=== PATIENT | male | born 1945 | race Caucasian/White ===

== ENCOUNTER 2021-11-23 19:46 | Emergency (ER) | payer MEDICARE, BC, OTHER | END 2021-11-23 20:17 | disposition left against medical advice (07) | LOC: CSHERS 19:46 | DX: Z53.21 Procedure and treatment not carried out due to patient leaving prior to being seen by health care provider (principal) ==

== ENCOUNTER → 2024-02-13 | Day surgery (SDC) | payer MEDICARE, OTHER ==
[~2024-02-13] MED LIST: Atropine Sulfate 1 mg/1 ml Vial ONE; CEFAZOLIN 1 GM VIAL ONE; Gentamicin 80 MG/2 ML VIAL ONE; Iopamidol 300 61% 100 ML VIAL FS ONE; Lidocaine 1% w/Epinephrine 1:200K 30 ML VIAL ONE; Midazolam HCl 2 mg/2 ml Vial ONE; Vancomycin 1 GM VIAL ONE; fentaNYL 50 mcg/mL 1 mL Vial ONE
[2024-02-13 07:14] LABS: #Basophils 0.07 10x3/uL (0.0-0.2); #Eosinphils 0.57 10x3/uL (0.0-0.5); #Monocytes 0.87 10x3/uL (0.0-1.1); #Neutrophils 4.55 10x3/uL (1.5-8.4); %Basophils 0.8 % (0.0-2.0); %Eosinophils 6.6 % (0.0-6.0); %Lymphocytes 29.7 % (18.0-47.0); %Monocytes 10.1 % (0.0-10.0); %Neutrophils 52.6 % (40.0-75.0); Hematocrit 35.5 % (38.8-50.0); Hemoglobin 11.6 g/dL (13.5-17.5); Mean Corpuscular HGB CONC 32.7 g/dL (32.0-36.0); Mean Corpuscular Hemoglobin 32.5 pg (27.0-33.0); Mean Corpuscular Volume 99.4 fL (81.2-95.1); Mean Platelet Volume 9.9 fL (7.4-10.4); Platelet Count 236 10x3/uL (150-450); RBC Distribution Width 12.9 % (11.5-14.5); Red Blood Cell (RBC) Count 3.57 10x6/uL (4.32-5.72); White Blood Cell (WBC) Count 8.7 10x3/uL (3.5-10.5)
[2024-02-13 07:25] LABS: INR-International Normal Ratio 1.1; Prothrombin Time 11.6 sec (9.5-12.1)
[2024-02-13 07:28] LABS: Anion Gap 17 mmol/L (10-20); BUN (Urea Nitrogen) 38 mg/dL (8.4-25.7); Calc. Creatinine Clearance 0 mL/min (70-130); Calcium 9.8 mg/dL (7.8-10.44); Carbon Dioxide 21 mmol/L (23-31); Chloride 104 mmol/L (98-107); Estimated GFR 32; Glucose 114 mg/dL (83-110); Sodium 137 mmol/L (136-145)
== END ==
LOC: CSHSDC 06:28
PROVIDERS: ATTEND Internal Medicine
PROC: 0JH608Z Insertion of Defibrillator Generator into Chest Subcutaneous Tissue and Fascia, Open Approach (ICD-10-PCS; principal; 2024-02-13)
PROC: 02H63KZ Insertion of Defibrillator Lead into Right Atrium, Percutaneous Approach (ICD-10-PCS; 2024-02-13)
PROC: 02HK3KZ Insertion of Defibrillator Lead into Right Ventricle, Percutaneous Approach (ICD-10-PCS; 2024-02-13)
DX: I25.5 Ischemic cardiomyopathy (principal); I11.0 Hypertensive heart disease with heart failure; I50.22 Chronic systolic (congestive) heart failure; I25.10 Atherosclerotic heart disease of native coronary artery without angina pectoris; E78.5 Hyperlipidemia, unspecified; Z79.899 Other long term (current) drug therapy
CPT/HCPCS: 33249; 71045; 80048; 85025; 85610; 93005; C1763; C1769; C1777; C1898; J0690; J1580; J2250; J3010; J3370; 93010; 99152; 99153; J0461; Q9967

== ENCOUNTER 2024-03-12 12:55 | Outpatient (CLI) | payer MEDICARE, OTHER | END 2024-03-12 12:56 | disposition home or self-care (01) | LOC: CSHULT 12:55 | PROVIDERS: ATTEND Internal Medicine | DX: N17.9 Acute kidney failure, unspecified (principal); N28.1 Cyst of kidney, acquired | CPT/HCPCS: 76770 ==

== ENCOUNTER 2024-07-17 13:56 | Emergency (ER) | payer MEDICARE ==
[2024-07-17] MEDS ORDERED: Lidocaine 1% PF 5 ML VIAL ONE (14:28)
[2024-07-17 14:51] LABS: #Basophils 0.06 10x3/uL (0.0-0.2); #Eosinophils 0.03 10x3/uL (0.0-0.5); #Monocytes 1.15 10x3/uL (0.0-1.1); #Neutrophils 6.85 10x3/uL (1.5-8.4); %Basophils 0.6 % (0.0-2.0); %Eosinophils 0.3 % (0.0-6.0); %Lymphocytes 23.6 % (18.0-47.0); %Monocytes 10.8 % (0.0-10.0); %Neutrophils 64.3 % (40.0-75.0); Hematocrit 35.7 % (38.8-50.0); Hemoglobin 12.2 g/dL (13.5-17.5); Mean Corpuscular HGB CONC 34.2 g/dL (32.0-36.0); Mean Corpuscular Hemoglobin 33.2 pg (27.0-33.0); Mean Platelet Volume 10.1 fL (7.4-10.4); Platelet Count 204 10x3/uL (150-450); RBC Distribution Width 12.4 % (11.5-14.5); Red Blood Cell (RBC) Count 3.68 10x6/uL (4.32-5.72); White Blood Cell (WBC) Count 10.64 10x3/uL (3.5-10.5)
[2024-07-17 15:10] LABS: ALT (SGPT) 15 U/L (Less than 45); AST (SGOT) 28 U/L (11-34); Alkaline Phosphatase 74 U/L (40-110); Anion Gap 16 mmol/L (10-20); BUN (Urea Nitrogen) 27 mg/dL (8.4-25.7); Calcium 9.5 mg/dL (7.8-10.44); Carbon Dioxide 19 mmol/L (23-31); Chloride 105 mmol/L (98-107); Glucose 93 mg/dL (83-110); Potassium 4.3 mmol/L (3.5-5.1); Protein, Total 7.4 g/dL (5.8-8.1); Sodium 136 mmol/L (136-145)
[2024-07-17 15:33] LABS: Albumin 3.8 g/dL (3.1-4.5); Bilirubin, Total 0.5 mg/dL (0.3-1.2); Calc. Creatinine Clearance 0 mL/min (70-130); Estimated GFR 29
== END 2024-07-17 16:40 | disposition home or self-care (01) ==
LOC: CSHERS 13:56
DX: S01.81XA Laceration without foreign body of other part of head, initial encounter (principal); R55 Syncope and collapse; I10 Essential (primary) hypertension; W01.198A Fall on same level from slipping, tripping and stumbling with subsequent striking against other object, initial encounter
CPT/HCPCS: 12053; 36415; 70450; 70486; 80053; 85025; 93005

== ENCOUNTER 2024-07-21 16:21 | Emergency (ER) | payer MEDICARE ==
[2024-07-21 18:00] LABS: INR-International Normal Ratio 1.1; PTT 31.8 sec (22.0-33.0); Prothrombin Time 12.2 sec (9.5-12.1)
[2024-07-21 18:14] LABS: Hematocrit 33.6 % (38.8-50.0); Hemoglobin 11.4 g/dL (13.5-17.5); Mean Corpuscular HGB CONC 33.9 g/dL (32.0-36.0); Mean Corpuscular Hemoglobin 32.1 pg (27.0-33.0); Mean Corpuscular Volume 94.6 fL (81.2-95.1); Mean Platelet Volume 10.4 fL (7.4-10.4); Platelet Count 232 10x3/uL (150-450); RBC Distribution Width 12.7 % (11.5-14.5); Red Blood Cell (RBC) Count 3.55 10x6/uL (4.32-5.72); White Blood Cell (WBC) Count 10.35 10x3/uL (3.5-10.5)
[2024-07-21] MEDS ORDERED: Ondansetron PF 4 MG/2 ML Vial ONE ×3 (18:14→23:47)
[2024-07-21 18:23] LABS: ALT (SGPT) 11 U/L (Less than 45); AST (SGOT) 18 U/L (11-34); Albumin 2.4 g/dL (3.1-4.5); Alkaline Phosphatase 90 U/L (40-110); Anion Gap 15 mmol/L (10-20); BUN (Urea Nitrogen) 66 mg/dL (8.4-25.7); Band 11 % (5-11); Bilirubin, Total 0.7 mg/dL (0.3-1.2); Calc. Creatinine Clearance 0 mL/min (70-130); Calcium 8.2 mg/dL (7.8-10.44); Carbon Dioxide 17 mmol/L (23-31); Chloride 105 mmol/L (98-107); Dohle Bodies SLIGHT; Estimated GFR 14; Globulin 3.3 g/dL (2.4-3.5); Glucose 122 mg/dL (83-110); Lipase 48 U/L (8-78); Lymphocytes 10 % (21-51); MDiff Complete? YES; Magnesium 1.6 mg/dL (1.6-2.6); Metamyelocyte 2 % (0-0); Monocytes 1 % (0-10); Neutrophil 75 % (42-75); Platelet Adequacy Comment Appears Adequate; Potassium 4.7 mmol/L (3.5-5.1); Protein, Total 5.7 g/dL (5.8-8.1); RBC Morphology Within Normal Limits; Reactive Lymphocytes 1 % (0-10); Sodium 132 mmol/L (136-145); Toxic Granulation SLIGHT
[2024-07-21 18:25] LABS: Troponin I 0.374 ng/mL (< 0.028)
[2024-07-21] MEDS ORDERED: Piperacillin/Tazobactam 3.375 GM VIAL ONE (20:00)
[2024-07-21] MEDS ORDERED: NOREPINEPHRINE 8 MG/250 ML-D5W 250 ML ONE (21:53)
== END 2024-07-22 01:09 | disposition short-term general hospital (02) ==
LOC: CSHERS 16:21
DX: A41.9 Sepsis, unspecified organism (principal); R65.21 Severe sepsis with septic shock; N17.9 Acute kidney failure, unspecified; K57.32 Diverticulitis of large intestine without perforation or abscess without bleeding; I10 Essential (primary) hypertension; E78.5 Hyperlipidemia, unspecified; K21.9 Gastro-esophageal reflux disease without esophagitis; Z79.899 Other long term (current) drug therapy
CPT/HCPCS: 36556; 71045; 71250; 73030; 74177; 80053; 83605; 83690; 83735; 83880; 84145; 84484; 85025; 85610; 85730; 86850; 86900; 86901; 87040; 87149 ×2; 93005; 96361; 96365; 96375; 96376; 99285; J2405; J2543; 36415; 87077

== ENCOUNTER 2025-04-09 09:45 | Outpatient (CLI) | payer MEDICARE, OTHER | END 2025-04-09 09:46 | disposition home or self-care (01) | LOC: CSHRAD 09:45 | PROVIDERS: ATTEND Surgery | DX: Z93.3 Colostomy status (principal) | CPT/HCPCS: 74280 ==

== ENCOUNTER 2025-04-09 11:45 | Inpatient (IN) | payer MEDICARE, OTHER ==
[2025-04-09 11:42] VITALS: BMI 25.1
[2025-04-19] MEDS ORDERED: Etomidate 40 MG (20 mL) VIAL ONE (08:25)
[2025-04-19] MEDS ORDERED: Rocuronium Bromide 10 MG/ML (10ML VIAL) ONE (08:25)
[2025-04-19] MEDS ORDERED: Bupivacaine/Epinephrine 0.25% 30 ML VIAL ONE ×2 (08:31→08:52)
[2025-04-19] MEDS ORDERED: Ondansetron PF 4 MG/2 ML Vial ONE (12:54)
[2025-04-19] MEDS ORDERED: SUGAMMADEX SODIUM 200 MG/2 ML VIAL ONE (13:06)
[2025-04-19] MEDS ORDERED: Ondansetron PF 4 MG/2 ML Vial IVP PRN (13:49)
[2025-04-19] MEDS ORDERED: hydrALAZINE 20 MG/ML VIAL SLOW IVP PRN (13:49)
[2025-04-19] MEDS ORDERED: Albuterol 2.5 MG (3 mL) NEB NEB PRN (14:15)
[2025-04-19] MEDS ORDERED: Glucagon 1 MG/ML KIT IM PRN (14:30)
[2025-04-19] MEDS ORDERED: Dextrose 50% Abboject 50 ML SYRINGE SLOW IVP PRN (14:30)
[2025-04-19] MEDS: D5 1/2 NS w/20 mEq KCL 1,000 ML IV SCH (17:07)
[2025-04-19] MEDS: Ketorolac Tromethamine 30 MG (1 mL) VIAL IVP SCH (17:07)
[2025-04-19] MEDS: hydrALAZINE 10 MG TAB PO SCH (17:51)
[2025-04-19] MEDS: Artificial Tear Ophth Sol 15 ML BOT EA EYE SCH (18:30)
[2025-04-19] MEDS: Famotidine/PF 20 mg/2ml Vial SLOW IVP SCH (21:09)
[2025-04-19] MEDS: cefOXitin Sodium 1 GM in Sodium Chloride 0.9% 100 ML IVPB SCH (21:11)
[2025-04-19] MEDS: Famotidine 20 MG TAB PO SCH (21:19)
[2025-04-19] MEDS: Carvedilol 25 MG TAB PO SCH (23:21)
[2025-04-20 05:35] LABS: #Basophils 0.05 10x3/uL (0.0-0.2); #Eosinophils 0.09 10x3/uL (0.0-0.5); #Monocytes 0.70 10x3/uL (0.0-1.1); #Neutrophils 8.95 10x3/uL (1.5-8.4); %Basophils 0.5 % (0.0-2.0); %Eosinophils 0.8 % (0.0-6.0); %Lymphocytes 11.0 % (18.0-47.0); %Monocytes 6.3 % (0.0-10.0); %Neutrophils 80.9 % (40.0-75.0); Hematocrit 38.0 % (38.8-50.0); Hemoglobin 12.4 g/dL (13.5-17.5); Mean Corpuscular Hemoglobin 32.5 pg (27.0-33.0); Mean Corpuscular Volume 99.7 fL (81.2-95.1); Platelet Count 167 10x3/uL (150-450); Red Blood Cell (RBC) Count 3.81 10x6/uL (4.32-5.72); White Blood Cell (WBC) Count 11.06 10x3/uL (3.5-10.5)
[2025-04-20] MEDS ORDERED: Pantoprazole 40 MG DR.TAB PO SCH (07:30)
[2025-04-20] MEDS: Pantoprazole 40 MG DR.TAB PO SCH (09:01)
[2025-04-20 12:10] LABS: Anion Gap 11 mmol/L (10-20); BUN (Urea Nitrogen) 29 mg/dL (8.4-25.7); Calc. Creatinine Clearance 43 mL/min (70-130); Calcium 7.9 mg/dL (7.8-10.44); Carbon Dioxide 29 mmol/L (23-31); Chloride 104 mmol/L (98-107); Glucose 100 mg/dL (83-110); Potassium 3.7 mmol/L (3.5-5.1); Sodium 140 mmol/L (136-145)
[2025-04-20] MEDS ORDERED: HYDROcodone/Acetaminophen 7.5/325 mg Tablet PO PRN (13:50)
[2025-04-20] MEDS: Furosemide 40 MG (4 mL) VIAL SLOW IVP SCH (16:43)
[2025-04-20 18:34] LABS: Troponin I 0.031 ng/mL (< 0.028)
[2025-04-21 05:18] LABS: #Basophils 0.03 10x3/uL (0.0-0.2); #Eosinophils 0.06 10x3/uL (0.0-0.5); #Monocytes 0.89 10x3/uL (0.0-1.1); #Neutrophils 7.69 10x3/uL (1.5-8.4); %Basophils 0.3 % (0.0-2.0); %Eosinophils 0.6 % (0.0-6.0); %Lymphocytes 10.0 % (18.0-47.0); %Monocytes 9.2 % (0.0-10.0); %Neutrophils 79.4 % (40.0-75.0); Hematocrit 31.1 % (38.8-50.0); Hemoglobin 10.0 g/dL (13.5-17.5); Mean Corpuscular Hemoglobin 32.4 pg (27.0-33.0); Mean Corpuscular Volume 100.6 fL (81.2-95.1); Platelet Count 141 10x3/uL (150-450); Red Blood Cell (RBC) Count 3.09 10x6/uL (4.32-5.72); White Blood Cell (WBC) Count 9.69 10x3/uL (3.5-10.5)
[2025-04-21 05:40] LABS: Troponin I 0.031 ng/mL (< 0.028)
[2025-04-21 06:06] LABS: Anion Gap 13 mmol/L (10-20); BUN (Urea Nitrogen) 30 mg/dL (8.4-25.7); Calc. Creatinine Clearance 43 mL/min (70-130); Calcium 8.1 mg/dL (7.8-10.44); Carbon Dioxide 27 mmol/L (23-31); Chloride 103 mmol/L (98-107); Glucose 130 mg/dL (83-110); Magnesium 1.7 mg/dL (1.6-2.6); Potassium 3.9 mmol/L (3.5-5.1); Sodium 139 mmol/L (136-145)
[2025-04-21] MEDS ORDERED: Etomidate 40 MG (20 mL) VIAL ONE (08:00)
[2025-04-21] MEDS ORDERED: Rocuronium Bromide 10 MG/ML (10ML VIAL) ONE (08:00)
[2025-04-21] MEDS: D5 1/2 NS w/20 mEq KCL 1,000 ML IV SCH (08:44)
[2025-04-21] MEDS: Furosemide 40 MG (4 mL) VIAL SLOW IVP SCH ×2 (08:45→14:11)
[2025-04-21] MEDS ORDERED: Midazolam In 0.9 % NaCl/PF 100 ML IV SCH (16:00)
[2025-04-21] MEDS ORDERED: Fentanyl BOLUS 100 ML IVPB PRN (16:15)
[2025-04-21] MEDS ORDERED: Propofol BOLUS 1,000 MG/100 ML VIAL IV PRN (16:15)
[2025-04-21] MEDS ORDERED: DISCONTINUE PREVIOUS NARCOTIC PAIN MEDICATIONS AND BENZODIAZEPINES FS SCH (16:15)
[2025-04-21] MEDS ORDERED: Ventilator Sedation Protocol 1 EACH FS SCH (16:15)
[2025-04-21 16:47] LABS: ALT (SGPT) 15 U/L (Less than 45); AST (SGOT) 47 U/L (11-34); Albumin 2.6 g/dL (3.1-4.5); Alkaline Phosphatase 78 U/L (40-110); Anion Gap 18 mmol/L (10-20); BUN (Urea Nitrogen) 31 mg/dL (8.4-25.7); Bilirubin, Total 1.5 mg/dL (0.3-1.2); Calc. Creatinine Clearance 41 mL/min (70-130); Calcium 7.7 mg/dL (7.8-10.44); Carbon Dioxide 24 mmol/L (23-31); Chloride 103 mmol/L (98-107); Globulin 3.7 g/dL (2.4-3.5); Glucose 123 mg/dL (83-110); Sodium 140 mmol/L (136-145)
[2025-04-21 16:48] LABS: Actual Bicarbonate (HCO3v) 24.5 mEq/L (22-28); Analyzer IN Cardio CS ICU; Base Excess -4.1 mEq/L (-2 - +2); Calcium, Ionized (venous) 1.06 mmol/L (1.16-1.32); Chloride (VBG) 102 mmol/L (98-106); Critical Notified By: Udy, RRT; Hematocrit-VBG 37 % (42.0-52.0); Hemoglobin (Hb) 12.6 g/dL (12.6-17.4); Potassium (VBG) 4.22 mmol/L (3.70-5.30); Puncture Site Other Site; RapidComm Collect By LAB; Sodium 139 mmol/L (133-146)
[2025-04-21 16:54] LABS: Troponin I 0.029 ng/mL (< 0.028)
[2025-04-21 17:04] LABS: Potassium 5.1 mmol/L (3.5-5.1)
[2025-04-21 17:06] LABS: #Basophils Less than 0.03 10x3/uL (0.0-0.2); #Eosinophils 0.13 10x3/uL (0.0-0.5); #Monocytes 0.67 10x3/uL (0.0-1.1); #Neutrophils 9.51 10x3/uL (1.5-8.4); %Basophils 0.2 % (0.0-2.0); %Eosinophils 1.1 % (0.0-6.0); %Lymphocytes 14.5 % (18.0-47.0); %Monocytes 5.5 % (0.0-10.0); %Neutrophils 77.9 % (40.0-75.0); Hematocrit 35.4 % (38.8-50.0); Hemoglobin 11.3 g/dL (13.5-17.5); Mean Corpuscular Hemoglobin 33.2 pg (27.0-33.0); Mean Corpuscular Volume 104.1 fL (81.2-95.1); Platelet Count 145 10x3/uL (150-450); Red Blood Cell (RBC) Count 3.40 10x6/uL (4.32-5.72); White Blood Cell (WBC) Count 12.20 10x3/uL (3.5-10.5)
[2025-04-21 17:16] LABS: Actual Bicarbonate (HCO3a) 24.4 mEq/L (22-28); Analyzer IN Cardio CS ICU; Base Excess (BEa) 3.1 mEq/L (-2.0 to +3.0); CO2 Tension 27.4 mmHg (35.0-45.0); Calcium, Ionized (arterial) 1.11 mmol/L (1.12-1.30); Hematocrit-ABG 36 % (42.0-52.0); Hemoglobin (Hb) 12.1 g/dL (14.0-18.0); O2 Tension (PaO2), arterial 54.7 mmHg (> 70.0); Potassium - ABG Lab 3.50 mmol/L (3.70-5.30); Puncture Site Right Radial artery; pH, Arterial 7.567 (7.35-7.45)
[2025-04-21 19:53] LABS: ALT (SGPT) Less than 4 U/L (Less than 45); AST (SGOT) 30 U/L (11-34); Albumin 2.3 g/dL (3.1-4.5); Alkaline Phosphatase 76 U/L (40-110); Anion Gap 14 mmol/L (10-20); BUN (Urea Nitrogen) 33 mg/dL (8.4-25.7); Bilirubin, Total 2.1 mg/dL (0.3-1.2); Calc. Creatinine Clearance 39 mL/min (70-130); Calcium 7.8 mg/dL (7.8-10.44); Carbon Dioxide 27 mmol/L (23-31); Chloride 104 mmol/L (98-107); Globulin 3.1 g/dL (2.4-3.5); Glucose 71 mg/dL (83-110); Magnesium 2.1 mg/dL (1.6-2.6); Potassium 3.3 mmol/L (3.5-5.1); Sodium 142 mmol/L (136-145)
[2025-04-21 20:59] VITALS: TEMP 97.6
[2025-04-21] MEDS ORDERED: Heparin 5,000 UNITS/ML VIAL SC SCH (21:00)
[2025-04-21] MEDS ORDERED: Vancomycin 1 GM in Premix 1 BAG IVPB SCH (21:00)
[2025-04-21 21:12] LABS: Actual Bicarbonate (HCO3a) 26.7 mEq/L (22-28); Analyzer IN Cardio CS ICU; Base Excess (BEa) 1.1 mEq/L (-2.0 to +3.0); CO2 Tension 46.1 mmHg (35.0-45.0); Calcium, Ionized (arterial) 1.10 mmol/L (1.12-1.30); Critical Notified By: CP.SDG; Hematocrit-ABG 34 % (42.0-52.0); Hemoglobin (Hb) 11.7 g/dL (14.0-18.0); O2 Tension (PaO2), arterial 171.0 mmHg (> 70.0); Potassium - ABG Lab 3.16 mmol/L (3.70-5.30); Puncture Site Right Femoral artery; RapidComm Collect By CP.SDG; pH, Arterial 7.380 (7.35-7.45)
[2025-04-21 21:21] VITALS: BP 85/54
[2025-04-21] MEDS ORDERED: EPINEPHrine 1 MG/10 ML Abboject SYRINGE ONE (21:43)
[2025-04-21] MEDS: Vancomycin 1.5 GRAM/300 ML BAG 1.5 GM in Premix 1 BAG IVPB SCH (22:38)
[2025-04-21] MEDS: NOREPINEPHRINE 8 MG/250 ML-D5W 250 ML ONE (22:39)
[2025-04-22] MEDS ORDERED: Furosemide 40 MG (4 mL) VIAL SLOW IVP SCH (06:00)
[2025-04-22] MEDS ORDERED: Pantoprazole 40 MG VIAL IVP SCH (09:00)
[2025-04-22] MEDS ORDERED: Vancomycin 1 GM in Sodium Chloride 0.9% 250 ML 250 ML IVPB SCH (20:00)
== END 2025-04-21 22:30 | disposition expired | DRG 329 ==
LOC: CSHTELE 04-19 07:22 → CSHICU 04-21 15:54
PROVIDERS: ADMIT Surgery; ATTEND Surgery
PROC: 0DBE4ZZ Excision of Large Intestine, Percutaneous Endoscopic Approach (ICD-10-PCS; principal; 2025-04-19)
PROC: 0DNU4ZZ Release Omentum, Percutaneous Endoscopic Approach (ICD-10-PCS; 2025-04-19)
PROC: 0DNP4ZZ Release Rectum, Percutaneous Endoscopic Approach (ICD-10-PCS; 2025-04-19)
PROC: 0DNL4ZZ Release Transverse Colon, Percutaneous Endoscopic Approach (ICD-10-PCS; 2025-04-19)
PROC: 8E0W4CZ Robotic Assisted Procedure of Trunk Region, Percutaneous Endoscopic Approach (ICD-10-PCS; 2025-04-19)
PROC: 5A2204Z Restoration of Cardiac Rhythm, Single (ICD-10-PCS; 2025-04-19)
PROC: 5A12012 Performance of Cardiac Output, Single, Manual (ICD-10-PCS; 2025-04-19)
PROC: 02H633Z Insertion of Infusion Device into Right Atrium, Percutaneous Approach (ICD-10-PCS; 2025-04-19)
PROC: 5A1935Z Respiratory Ventilation, Less than 24 Consecutive Hours (ICD-10-PCS; 2025-04-21)
PROC: 3E03329 Introduction of Other Anti-infective into Peripheral Vein, Percutaneous Approach (ICD-10-PCS; 2025-04-21)
PROC: 3E033XZ Introduction of Vasopressor into Peripheral Vein, Percutaneous Approach (ICD-10-PCS; 2025-04-21)
PROC: 4A133R1 Monitoring of Arterial Saturation, Peripheral, Percutaneous Approach (ICD-10-PCS; 2025-04-21)
PROC: 0BH17EZ Insertion of Endotracheal Airway into Trachea, Via Natural or Artificial Opening (ICD-10-PCS; 2025-04-21)
DX: Z43.3 Encounter for attention to colostomy (principal); G92.8 Other toxic encephalopathy; I50.23 Acute on chronic systolic (congestive) heart failure; J96.01 Acute respiratory failure with hypoxia; J96.02 Acute respiratory failure with hypercapnia; I13.0 Hypertensive heart and chronic kidney disease with heart failure and stage 1 through stage 4 chronic kidney disease, or unspecified chronic kidney disease; N17.9 Acute kidney failure, unspecified; I24.89 Other forms of acute ischemic heart disease; R18.8 Other ascites; K62.5 Hemorrhage of anus and rectum; E87.3 Alkalosis; Z66 Do not resuscitate; E78.5 Hyperlipidemia, unspecified; N40.0 Benign prostatic hyperplasia without lower urinary tract symptoms; K21.9 Gastro-esophageal reflux disease without esophagitis; I25.5 Ischemic cardiomyopathy; Z88.1 Allergy status to other antibiotic agents; Z91.048 Other nonmedicinal substance allergy status; I25.10 Atherosclerotic heart disease of native coronary artery without angina pectoris; Z95.1 Presence of aortocoronary bypass graft; Z95.810 Presence of automatic (implantable) cardiac defibrillator; Z98.890 Other specified postprocedural states; N18.30 Chronic kidney disease, stage 3 unspecified; J44.9 Chronic obstructive pulmonary disease, unspecified; Z86.73 Personal history of transient ischemic attack (TIA), and cerebral infarction without residual deficits; R74.01 Elevation of levels of liver transaminase levels; D69.6 Thrombocytopenia, unspecified; Z79.82 Long term (current) use of aspirin; Z79.899 Other long term (current) drug therapy; K66.0 Peritoneal adhesions (postprocedural) (postinfection); I49.01 Ventricular fibrillation; D63.1 Anemia in chronic kidney disease; Z78.1 Physical restraint status; I95.9 Hypotension, unspecified
CPT/HCPCS: 36415; 36416; 36600; 71045; 80048; 82805; 83735; 83880; 84100; 84484; 85025; 87040; 88304; 88305; 93005; 93010; 94002; 94003; 94760; A6258; C1889; J0165; J0692; J0694; J1308; J1885; J1940; J2272; J2405; J3010; J3480; J7030; S2900